=== PATIENT | male | born 1945 | race Caucasian/White ===

== ENCOUNTER 2017-10-15 06:57 | Day surgery (SDC) | payer MEDICARE ==
[~2017-10-15] VITALS: Ht 172.7 cm; Wt 122.0 kg
[2017-10-15] VITALS (9 sets, daily range): BP systolic 110–137; BP diastolic 50–74
[2017-10-15] MEDS ORDERED: acetaminophen 325mg tablet PO ONE (07:20)
[2017-10-15] MEDS ORDERED: cetirizine 10mg tablet PO ONE (07:20)
[2017-10-15] MEDS ORDERED: PER10325T PO (08:26)
[2017-10-15] MEDS ORDERED: METO25TA6 PO (08:26)
[2017-10-15] MEDS ORDERED: BICA50TA2 PO (08:26)
[2017-10-15] MEDS ORDERED: FLUO20CA39 PO (08:26)
[2017-10-15] MEDS ORDERED: OXYC10TA57 PO (09:52)
[2017-10-15] MEDS ORDERED: ROSU40TA PO (09:52)
[2017-10-15] MEDS ORDERED: ONDA8TAB13 PO (09:52)
[2017-10-15] MEDS ORDERED: DOCU250C86 PO (09:55)
[2017-10-15] MEDS ORDERED: FLO0.4C PO (09:55)
[2017-10-15] MEDS ORDERED: SENN1TAB5 PO (09:55)
[2017-10-15] MEDS ORDERED: MAGN400O6 PO (09:56)
== END 2017-10-15 13:00 ==
LOC: SSTAY O 06:57
PROVIDERS: ATTEND Family Medicine
DX: D64.9 Anemia, unspecified (principal); Z85.46 Personal history of malignant neoplasm of prostate; Z95.5 Presence of coronary angioplasty implant and graft; Z98.890 Other specified postprocedural states
CPT/HCPCS: 36415; 36430; 86885; 86900; 86901; 86920; J7030; P9016

== ENCOUNTER 2017-11-02 20:59 | Emergency (ER) | payer MEDICARE ==
[~2017-11-02] VITALS: Ht 172.7 cm; Wt 110.9 kg
[~2017-11-02 20:59] MED LIST: BICA50TA2 PO; DOCU250C86 PO; FLO0.4C PO; FLUO20CA39 PO; MAGN400O6 PO; METO25TA6 PO; ONDA8TAB13 PO; OXYC10TA57 PO; PER10325T PO; ROSU40TA PO; SENN1TAB5 PO
[2017-11-02 21:43] LABS: BASOPHILS % (AUTO) 0.3 % (0-1); EOSINOPHILS # (AUTO) 0.1 X10'3 (0-0.9); HEMOGLOBIN 8.2 g/dl (14.0-17.9); LYMPHOCYTES # (AUTO) 1.5 X10'3 (1.1-4.8); LYMPHOCYTES % (AUTO) 23.9 % (21-51); MEAN CORPUSCULAR HEMOGLOBIN 33.1 PG (27.0-31.0); MEAN CORPUSCULAR HGB CONC 34.3 % (33.0-36.5); MEAN CORPUSCULAR VOLUME 96.6 FL (78-98); MEAN PLATELET VOLUME 7.9 FL (7.4-10.4); MONOCYTES # (AUTO) 0.5 X10'3 (0-0.9); MONOCYTES % (AUTO) 7.7 % (2-12); NEUTROPHILS # (AUTO) 4.1 X10'3 (1.8-7.7); NEUTROPHILS % (AUTO) 67.1 % (42-75); PLATELET COUNT 62 X10'3 (140-440); RED BLOOD COUNT 2.48 X10'6 (4.70-6.10); RED CELL DISTRIBUTION WIDTH 20.2 % (11.5-14.5); WHITE BLOOD COUNT 6.1 X10'3 (4.5-11.0)
[2017-11-02 21:47] LABS: CLARITY,URINE CLOUDY (Clear); COLOR,URINE YELLOW (Yellow); GLUCOSE, URINE NEGATIVE (Neg); KETONES,URINE 15 mg/dl (Neg); LEUKOCYTE ESTERASE ,URINE LARGE (Neg); NITRITES, URINE NEGATIVE (Neg); OCCULT BLOOD,URINE LARGE (Neg); PROTEIN,URINE 100 mg/dl (Neg)
[2017-11-02 21:48] LABS: UA COLLECTION TYPE CLN CATCH MIDSTREAM
[2017-11-02 21:51] LABS: PROTHROMBIN TIME 10.7 SECONDS (9.0-12.0)
[2017-11-02 21:53] LABS: BACTERIA,URINE 4+ /HPF (Neg); MUCUS STRANDS FEW /LPF (Neg); SQUAMOUS EPITHELIAL CELL,UR MODERATE /LPF (FEW); WBC,URINE TNTC /HPF (0-4)
[2017-11-02 22:03] LABS: ALANINE AMINOTRANSFERASE 9 U/L (12-78); ALBUMIN/GLOBULIN RATIO 0.8 (1.1-1.5); ALKALINE PHOSPHATASE 442 IU/L (46-116); ANION GAP 11 (8-16); ASPARTATE AMINO TRANSFERASE 52 U/L (10-37); BILIRUBIN,TOTAL 0.7 MG/DL (0.1-1.0); BLOOD UREA NITROGEN 12 MG/DL (7-18); BUN/CREATININE RATIO 11.3 (5.4-32.0); CALCIUM 9.5 MG/DL (8.5-10.1); CHLORIDE 103 MMOL/L (99-107); CREATININE 1.06 MG/DL (0.60-1.10); GLUCOSE 114 MG/DL (70-104); POTASSIUM 3.6 MMOL/L (3.5-5.1); SODIUM 142 MMOL/L (135-145); TOTAL CARBON DIOXIDE 28.4 MMOL/L (24-32); TOTAL PROTEIN 6.7 G/DL (6.4-8.2); eGFR 68 ML/MIN
[2017-11-02 22:30] LABS: CLARITY,URINE CLOUDY (Clear); COLOR,URINE YELLOW (Yellow); GLUCOSE, URINE NEGATIVE (Neg); LEUKOCYTE ESTERASE ,URINE LARGE (Neg); OCCULT BLOOD,URINE LARGE (Neg); PROTEIN,URINE 100 mg/dl (Neg); UROBILINOGEN,URINE 0.2 E.U/dL (0.2-1.0)
[2017-11-02] MEDS ORDERED: normal saline 1000ml 1,000 ML IV ONE (22:30)
[2017-11-02 22:31] LABS: NITRITES, URINE POSITIVE (Neg); UA COLLECTION TYPE CLN CATCH MIDSTREAM
[2017-11-02 22:32] LABS: KETONES,URINE 15 mg/dl (Neg)
[2017-11-02] MEDS ORDERED: normal saline 1000ML IV soln IVB ONE (22:35)
[2017-11-02 22:39] LABS: BACTERIA,URINE 4+ /HPF (Neg); MUCUS STRANDS FEW /LPF (Neg); SQUAMOUS EPITHELIAL CELL,UR MODERATE /LPF (FEW); WBC,URINE TNTC /HPF (0-4)
[2017-11-02] MEDS ORDERED: levoFLOXACIN-Levaquin 750MG/D5 150 ML IV ONE (23:15)
[2017-11-03] MEDS ORDERED: LEVO750T21 PO (00:59)
[2017-11-03 02:08] VITALS: BP 138/61
== END 2017-11-03 02:10 | disposition home or self-care (01) ==
LOC: ER 20:59
DX: N39.0 Urinary tract infection, site not specified (principal); I25.10 Atherosclerotic heart disease of native coronary artery without angina pectoris; I10 Essential (primary) hypertension; I25.2 Old myocardial infarction; Z85.46 Personal history of malignant neoplasm of prostate; Z79.899 Other long term (current) drug therapy
CPT/HCPCS: 36415; 71045; 80053; 81001; 85025; 85610; 87077; 87088; 87186; 96365; 99285; J1956; J7030

== ENCOUNTER 2017-11-17 12:21 | Inpatient (IN) | payer MEDICARE ==
[2017-11-17] VITALS (10 sets, daily range): BP systolic 133–163; BP diastolic 51–72
[~2017-11-17] VITALS: Ht 604 cm; Wt 110.0 kg
[2017-11-17] MEDS ORDERED: normal saline 1000ML IV soln IVB ONE (12:55)
[2017-11-17 13:15] LABS: BASOPHILS % (AUTO) 0.5 % (0-1); EOSINOPHILS # (AUTO) 0.1 X10'3 (0-0.9); HEMATOCRIT 23.8 % (42.0-52.0); HEMOGLOBIN 8.1 g/dl (14.0-17.9); LYMPHOCYTES % (AUTO) 32.4 % (21-51); MEAN CORPUSCULAR HGB CONC 34.3 % (33.0-36.5); MEAN CORPUSCULAR VOLUME 96.2 FL (78-98); MEAN PLATELET VOLUME 7.6 FL (7.4-10.4); MONOCYTES # (AUTO) 0.5 X10'3 (0-0.9); MONOCYTES % (AUTO) 7.3 % (2-12); NEUTROPHILS # (AUTO) 3.7 X10'3 (1.8-7.7); NEUTROPHILS % (AUTO) 58.8 % (42-75); PLATELET COUNT 66 X10'3 (140-440); RED BLOOD COUNT 2.47 X10'6 (4.70-6.10); RED CELL DISTRIBUTION WIDTH 20.4 % (11.5-14.5); WHITE BLOOD COUNT 6.3 X10'3 (4.5-11.0)
[2017-11-17 13:29] LABS: ALANINE AMINOTRANSFERASE 11 U/L (12-78); ALBUMIN 2.8 G/DL (3.4-5.0); ALBUMIN/GLOBULIN RATIO 0.7 (1.1-1.5); ALKALINE PHOSPHATASE 456 IU/L (46-116); ANION GAP 10 (8-16); ASPARTATE AMINO TRANSFERASE 55 U/L (10-37); BILIRUBIN,TOTAL 0.7 MG/DL (0.1-1.0); BLOOD UREA NITROGEN 10 MG/DL (7-18); BUN/CREATININE RATIO 9.8 (5.4-32.0); CHLORIDE 101 MMOL/L (99-107); CREATININE 1.02 MG/DL (0.60-1.10); GLUCOSE 86 MG/DL (70-104); POTASSIUM 3.2 MMOL/L (3.5-5.1); SODIUM 139 MMOL/L (135-145); TOTAL CARBON DIOXIDE 28.1 MMOL/L (24-32); TOTAL PROTEIN 6.7 G/DL (6.4-8.2); eGFR 72 ML/MIN
[2017-11-17 13:34] LABS: CLARITY,URINE SLIGHTLY CLOUDY (Clear); COLOR,URINE YELLOW (Yellow); GLUCOSE, URINE NEGATIVE (Neg); KETONES,URINE 15 mg/dl (Neg); LEUKOCYTE ESTERASE ,URINE NEGATIVE (Neg); NITRITES, URINE NEGATIVE (Neg); OCCULT BLOOD,URINE MODERATE (Neg); PROTEIN,URINE 100 mg/dl (Neg); UROBILINOGEN,URINE 0.2 E.U/dL (0.2-1.0)
[2017-11-17] MEDS ORDERED: potassium Cl 20 mEq SR tablet PO STA (13:37)
[2017-11-17 13:40] LABS: UA COLLECTION TYPE URINAL
[2017-11-17 13:43] LABS: RBC,URINE 20-50 /HPF (0-2); WBC,URINE 30-50 /HPF (0-4)
[2017-11-17 13:44] LABS: BACTERIA,URINE 1+ /HPF (Neg); SQUAMOUS EPITHELIAL CELL,UR FEW /LPF (FEW)
[2017-11-17 13:45] LABS: COARSE GRANULAR CAST 0-3 /LPF (NEGATIVE); HYALINE CASTS 0-3 /LPF (NEGATIVE); MUCUS STRANDS FEW /LPF (Neg)
[2017-11-17] MEDS ORDERED: CefTRIAXone 2gm/D5W 50ml 50 ML IV ONE (14:00)
[2017-11-17] MEDS ORDERED: ondansetron/PF 4mg/2ml inj IV PRN (14:45)
[2017-11-17] MEDS ORDERED: mag hydrox/Alum hydrox/simeth 30ml oral suspension PO PRN (14:45)
[2017-11-17] MEDS ORDERED: acetaminophen 325mg tablet PO PRN (14:45)
[2017-11-17] MEDS ORDERED: magnesium hydroxide 30ml (MOM) UD suspension PO PRN (14:45)
[2017-11-17] MEDS ORDERED: ROSU40TA PO (14:50)
[2017-11-17] MEDS ORDERED: PSYL283P18 PO (14:50)
[2017-11-17] MEDS ORDERED: VENL-191 PO (14:50)
[2017-11-17] MEDS ORDERED: OXYC10TA57 PO (14:50)
[2017-11-17] MEDS: normal saline 1000ml 1,000 ML IV SCH (15:16)
[2017-11-17] MEDS: HYDROcodone/acetaminophen 5mg/325mg tablet PO PRN (18:54)
[2017-11-18] MEDS: normal saline 1000ml 1,000 ML IV SCH ×4 (00:15→21:03)
[2017-11-18] MEDS: HYDROcodone/acetaminophen 5mg/325mg tablet PO PRN ×3 (00:21→23:59)
[2017-11-18 05:38] LABS: BASOPHILS % (AUTO) 0.3 % (0-1); EOSINOPHILS % (AUTO) 0.3 % (0-6); HEMATOCRIT 27.9 % (42.0-52.0); HEMOGLOBIN 9.6 g/dl (14.0-17.9); LYMPHOCYTES # (AUTO) 2.1 X10'3 (1.1-4.8); LYMPHOCYTES % (AUTO) 35.1 % (21-51); MEAN CORPUSCULAR HEMOGLOBIN 32.6 PG (27.0-31.0); MEAN CORPUSCULAR HGB CONC 34.4 % (33.0-36.5); MEAN CORPUSCULAR VOLUME 94.9 FL (78-98); MEAN PLATELET VOLUME 7.9 FL (7.4-10.4); MONOCYTES # (AUTO) 0.5 X10'3 (0-0.9); MONOCYTES % (AUTO) 8.5 % (2-12); NEUTROPHILS # (AUTO) 3.3 X10'3 (1.8-7.7); NEUTROPHILS % (AUTO) 55.8 % (42-75); PLATELET COUNT 51 X10'3 (140-440); RED BLOOD COUNT 2.94 X10'6 (4.70-6.10); RED CELL DISTRIBUTION WIDTH 20.6 % (11.5-14.5); WHITE BLOOD COUNT 5.9 X10'3 (4.5-11.0)
[2017-11-18 06:06] LABS: ALBUMIN 2.5 G/DL (3.4-5.0); ANION GAP 10 (8-16); BLOOD UREA NITROGEN 11 MG/DL (7-18); BUN/CREATININE RATIO 13.1 (5.4-32.0); CALCIUM 9.4 MG/DL (8.5-10.1); CHLORIDE 105 MMOL/L (99-107); CREATININE 0.84 MG/DL (0.60-1.10); GLUCOSE 79 MG/DL (70-104); POTASSIUM 3.3 MMOL/L (3.5-5.1); SODIUM 141 MMOL/L (135-145); TOTAL CARBON DIOXIDE 25.8 MMOL/L (24-32); eGFR 90 ML/MIN
[2017-11-18 07:00] VITALS: BP 145/60
[2017-11-18] MEDS: NYSTATIN CREAM - 30GM TUBE TP SCH ×2 (15:35→16:00)
[2017-11-18 19:00] VITALS: BP 149/65
[2017-11-19] VITALS: BP 147/60
[2017-11-19 05:07] LABS: ALBUMIN 2.4 G/DL (3.4-5.0); ANION GAP 10 (8-16); BLOOD UREA NITROGEN 9 MG/DL (7-18); BUN/CREATININE RATIO 9.1 (5.4-32.0); CALCIUM 9.4 MG/DL (8.5-10.1); CHLORIDE 106 MMOL/L (99-107); CREATININE 0.99 MG/DL (0.60-1.10); GLUCOSE 86 MG/DL (70-104); POTASSIUM 3.1 MMOL/L (3.5-5.1); SODIUM 141 MMOL/L (135-145); TOTAL CARBON DIOXIDE 25.5 MMOL/L (24-32); eGFR 74 ML/MIN
[2017-11-19 05:09] LABS: BASOPHILS % (AUTO) 0.3 % (0-1); EOSINOPHILS % (AUTO) 0 % (0-6); HEMOGLOBIN 10.8 g/dl (14.0-17.9); LYMPHOCYTES # (AUTO) 2.1 X10'3 (1.1-4.8); LYMPHOCYTES % (AUTO) 37.3 % (21-51); MEAN CORPUSCULAR HGB CONC 33.9 % (33.0-36.5); MEAN CORPUSCULAR VOLUME 91.4 FL (78-98); MEAN PLATELET VOLUME 8.1 FL (7.4-10.4); MONOCYTES # (AUTO) 0.5 X10'3 (0-0.9); MONOCYTES % (AUTO) 8.1 % (2-12); NEUTROPHILS # (AUTO) 3.1 X10'3 (1.8-7.7); NEUTROPHILS % (AUTO) 54.3 % (42-75); PLATELET COUNT 51 X10'3 (140-440); RED CELL DISTRIBUTION WIDTH 20.8 % (11.5-14.5); WHITE BLOOD COUNT 5.7 X10'3 (4.5-11.0)
[2017-11-19 07:41] VITALS: BP 141/60
[2017-11-19] MEDS: NYSTATIN CREAM - 30GM TUBE TP SCH (07:48)
[2017-11-19] MEDS: normal saline 1000ml 1,000 ML IV SCH (10:52)
[2017-11-19 11:24] VITALS: BP 132/61
[2017-11-19] MEDS ORDERED: potassium Cl 20 mEq SR tablet PO STA (14:24)
== END 2017-11-19 16:50 | disposition home health service (06) | DRG 723 ==
LOC: ER 12:22 → ED HOLD 14:43 → OBSVTOIN 14:43 → SUR 3N 17:56
PROVIDERS: ADMIT Internal Medicine; ATTEND Internal Medicine
PROC: 30233N1 Transfusion of Nonautologous Red Blood Cells into Peripheral Vein, Percutaneous Approach (ICD-10-PCS; principal; 2017-11-17)
DX: C61 Malignant neoplasm of prostate (principal); N39.0 Urinary tract infection, site not specified; D63.0 Anemia in neoplastic disease; E78.00 Pure hypercholesterolemia, unspecified; E78.5 Hyperlipidemia, unspecified; F32.9 Major depressive disorder, single episode, unspecified; G89.29 Other chronic pain; Z66 Do not resuscitate; E87.6 Hypokalemia; I10 Essential (primary) hypertension; I25.10 Atherosclerotic heart disease of native coronary artery without angina pectoris; Z95.5 Presence of coronary angioplasty implant and graft; I25.2 Old myocardial infarction; Z79.899 Other long term (current) drug therapy
CPT/HCPCS: 36415; 80048; 80053; 81001; 83735; 85025; 86644; 86885; 86900; 86901; 86920; 86945; 87070; 87088; 96360; 97110; 97116; 97161; 99285; A6212; A6213; J0696; J7030; P9016

== ENCOUNTER 2018-02-24 13:11 | Inpatient (IN) | payer MEDICARE ==
[~2018-02-24] VITALS: Ht 175.3 cm; Wt 105.0 kg
[~2018-02-24 13:11] MED LIST changes: -BICA50TA2 PO; +BICA50TA7 PO; -FLUO20CA39 PO; -MAGN400O6 PO; +MEGE400O2 PO; -ONDA8TAB13 PO; -PER10325T PO; +PSYL283P10 PO; -SENN1TAB5 PO; +VENL-191 PO
[2018-02-24 15:23] LABS: BASOPHILS % (AUTO) 0.3 % (0-1); EOSINOPHILS % (AUTO) 0 % (0-6); LYMPHOCYTES # (AUTO) 3.1 X10'3 (1.1-4.8); LYMPHOCYTES % (AUTO) 61.2 % (21-51); MEAN CORPUSCULAR HEMOGLOBIN 33.5 PG (27.0-31.0); MEAN CORPUSCULAR HGB CONC 35.5 % (33.0-36.5); MEAN CORPUSCULAR VOLUME 94.3 FL (78-98); MEAN PLATELET VOLUME 8.4 FL (7.4-10.4); MONOCYTES # (AUTO) 0.4 X10'3 (0-0.9); MONOCYTES % (AUTO) 8.9 % (2-12); NEUTROPHILS # (AUTO) 1.4 X10'3 (1.8-7.7); NEUTROPHILS % (AUTO) 29.6 % (42-75); RED BLOOD COUNT 1.67 X10'6 (4.70-6.10); RED CELL DISTRIBUTION WIDTH 16.5 % (11.5-14.5); WHITE BLOOD COUNT 4.9 X10'3 (4.5-11.0)
[2018-02-24 15:33] LABS: INR 1.1 INR; PARTIAL THROMBOPLASTIN TIME 25 SECONDS (22-32)
[2018-02-24 15:36] LABS: ALANINE AMINOTRANSFERASE 16 U/L (12-78); ALBUMIN 2.5 G/DL (3.4-5.0); ALBUMIN/GLOBULIN RATIO 0.6 (1.1-1.5); ALKALINE PHOSPHATASE 445 IU/L (46-116); ANION GAP 10 (8-16); ASPARTATE AMINO TRANSFERASE 92 U/L (10-37); BILIRUBIN,TOTAL 0.5 MG/DL (0.1-1.0); BLOOD UREA NITROGEN 25 MG/DL (7-18); BUN/CREATININE RATIO 25.8 (5.4-32.0); CALCIUM 10.1 MG/DL (8.5-10.1); CHLORIDE 106 MMOL/L (99-107); CREATININE 0.97 MG/DL (0.60-1.10); GLUCOSE 104 MG/DL (70-104); SODIUM 141 MMOL/L (135-145); TOTAL CARBON DIOXIDE 24.7 MMOL/L (24-32); TOTAL PROTEIN 6.4 G/DL (6.4-8.2); eGFR 76 ML/MIN
[2018-02-24 15:40] LABS: HEMATOCRIT 15.8 % (42.0-52.0); HEMOGLOBIN 5.6 g/dl (14.0-17.9)
[2018-02-24 15:41] LABS: PLATELET COUNT 23 X10'3 (140-440)
[2018-02-24 15:53] LABS: ANISOCYTOSIS 1+; NUCLEATED RED BLOOD CELLS 1 /100WBC (0-0); PLATELET ESTIMATE DECREASED; SMUDGE CELLS 1+; TOTAL CELLS COUNTED 100
[2018-02-24 16:59] VITALS: BP 118/50
[2018-02-24 17:14] VITALS: BP 120/52
[2018-02-24] MEDS ORDERED: magnesium Cl slow-release 64mg tablet PO PRN (17:25)
[2018-02-24] MEDS ORDERED: ondansetron/PF 4mg/2ml inj IV PRN (17:25)
[2018-02-24] MEDS ORDERED: potassium Cl 40MEQ/NS 500ml 500 ML IV PRN ×2 (17:25)
[2018-02-24] MEDS ORDERED: magnesium hydroxide 30ml (MOM) UD suspension PO PRN (17:25)
[2018-02-24] MEDS ORDERED: mag hydrox/Alum hydrox/simeth 30ml oral suspension PO PRN (17:25)
[2018-02-24] MEDS ORDERED: magnesium 1gm/100ml D5W IVPB 100 ML IV PRN (17:25)
[2018-02-24] MEDS ORDERED: acetaminophen 325mg tablet PO PRN (17:25)
[2018-02-24] MEDS ORDERED: magnesium 4gm in 100ml NS 100 ML IV PRN (17:25)
[2018-02-24] MEDS ORDERED: potassium Cl 20 mEq SR tablet PO PRN ×2 (17:25)
[2018-02-24] MEDS ORDERED: bisacodyl 10mg suppository rectal RC PRN (17:25)
[2018-02-24 18:16] LABS: % IRON SATURATION 90 % (11-46); IRON 235 UG/DL (53-167); TOTAL IRON BINDING CAPACITY 260 UG/DL (259-388)
[2018-02-24] MEDS: ferrous gluconate 324mg tablet PO SCH (18:33)
[2018-02-24 18:41] VITALS: BP 121/54
[2018-02-24 19:30] VITALS: BP 128/57
[2018-02-24] MEDS: docusate sod 100mg capsule PO SCH (21:02)
[2018-02-24 22:11] LABS: BASOPHILS % (AUTO) 0.3 % (0-1); EOSINOPHILS % (AUTO) 0.1 % (0-6); LYMPHOCYTES % (AUTO) 63.4 % (21-51); MEAN CORPUSCULAR HEMOGLOBIN 32.2 PG (27.0-31.0); MEAN CORPUSCULAR HGB CONC 35.2 % (33.0-36.5); MEAN CORPUSCULAR VOLUME 91.5 FL (78-98); MEAN PLATELET VOLUME 8.2 FL (7.4-10.4); MONOCYTES # (AUTO) 0.4 X10'3 (0-0.9); MONOCYTES % (AUTO) 9.1 % (2-12); NEUTROPHILS # (AUTO) 1.3 X10'3 (1.8-7.7); NEUTROPHILS % (AUTO) 27.1 % (42-75); RED BLOOD COUNT 1.92 X10'6 (4.70-6.10); RED CELL DISTRIBUTION WIDTH 15.4 % (11.5-14.5); WHITE BLOOD COUNT 4.7 X10'3 (4.5-11.0)
[2018-02-24 22:29] LABS: HEMATOCRIT 17.5 % (42.0-52.0); HEMOGLOBIN 6.2 g/dl (14.0-17.9); PLATELET COUNT 21 X10'3 (140-440)
[2018-02-25] VITALS (8 sets, daily range): BP systolic 103–130; BP diastolic 47–56
[2018-02-25 05:40] LABS: BASOPHILS % (AUTO) 0.4 % (0-1); EOSINOPHILS % (AUTO) 0.1 % (0-6); HEMOGLOBIN 7.4 g/dl (14.0-17.9); LYMPHOCYTES % (AUTO) 63.6 % (21-51); MEAN CORPUSCULAR HEMOGLOBIN 32.3 PG (27.0-31.0); MEAN CORPUSCULAR HGB CONC 34.8 % (33.0-36.5); MEAN CORPUSCULAR VOLUME 92.6 FL (78-98); MEAN PLATELET VOLUME 8.3 FL (7.4-10.4); MONOCYTES # (AUTO) 0.4 X10'3 (0-0.9); MONOCYTES % (AUTO) 9.1 % (2-12); NEUTROPHILS # (AUTO) 1.2 X10'3 (1.8-7.7); NEUTROPHILS % (AUTO) 26.8 % (42-75); RED BLOOD COUNT 2.28 X10'6 (4.70-6.10); RED CELL DISTRIBUTION WIDTH 15.1 % (11.5-14.5); WHITE BLOOD COUNT 4.6 X10'3 (4.5-11.0)
[2018-02-25 05:58] LABS: HEMATOCRIT 21.1 % (42.0-52.0); PLATELET COUNT 21 X10'3 (140-440)
[2018-02-25 06:05] LABS: ALANINE AMINOTRANSFERASE 13 U/L (12-78); ALBUMIN 2.3 G/DL (3.4-5.0); ALBUMIN/GLOBULIN RATIO 0.6 (1.1-1.5); ALKALINE PHOSPHATASE 413 IU/L (46-116); ANION GAP 12 (8-16); ASPARTATE AMINO TRANSFERASE 89 U/L (10-37); BILIRUBIN,TOTAL 0.6 MG/DL (0.1-1.0); BLOOD UREA NITROGEN 22 MG/DL (7-18); BUN/CREATININE RATIO 25.6 (5.4-32.0); CALCIUM 9.9 MG/DL (8.5-10.1); CHLORIDE 106 MMOL/L (99-107); CREATININE 0.86 MG/DL (0.60-1.10); GLUCOSE 91 MG/DL (70-104); MAGNESIUM 1.9 MG/DL (1.5-2.4); POTASSIUM 3.9 MMOL/L (3.5-5.1); SODIUM 142 MMOL/L (135-145); TOTAL CARBON DIOXIDE 24.1 MMOL/L (24-32); TOTAL PROTEIN 5.9 G/DL (6.4-8.2); eGFR 87 ML/MIN
[2018-02-25] MEDS: K and/or MAG REPLACEMENT MC SCH (08:03)
[2018-02-25] MEDS: docusate sod 100mg capsule PO SCH ×2 (08:06→19:29)
[2018-02-25] MEDS: ferrous gluconate 324mg tablet PO SCH ×3 (08:41→17:57)
[2018-02-25 18:25] LABS: OCCULT BLOOD STOOL NEGATIVE (Neg)
[2018-02-26] VITALS: BP 131/52
[2018-02-26 05:14] LABS: BASOPHILS % (AUTO) 0.3 % (0-1); EOSINOPHILS % (AUTO) 0 % (0-6); HEMOGLOBIN 7.4 g/dl (14.0-17.9); LYMPHOCYTES # (AUTO) 2.9 X10'3 (1.1-4.8); LYMPHOCYTES % (AUTO) 59.2 % (21-51); MEAN CORPUSCULAR HEMOGLOBIN 32.7 PG (27.0-31.0); MEAN CORPUSCULAR HGB CONC 35.4 % (33.0-36.5); MEAN CORPUSCULAR VOLUME 92.4 FL (78-98); MEAN PLATELET VOLUME 8.8 FL (7.4-10.4); MONOCYTES # (AUTO) 0.5 X10'3 (0-0.9); MONOCYTES % (AUTO) 10.3 % (2-12); NEUTROPHILS # (AUTO) 1.5 X10'3 (1.8-7.7); NEUTROPHILS % (AUTO) 30.2 % (42-75); RED BLOOD COUNT 2.28 X10'6 (4.70-6.10); WHITE BLOOD COUNT 4.9 X10'3 (4.5-11.0)
[2018-02-26 05:19] LABS: PLATELET COUNT 21 X10'3 (140-440)
[2018-02-26 05:39] LABS: ALANINE AMINOTRANSFERASE 17 U/L (12-78); ALBUMIN 2.3 G/DL (3.4-5.0); ALBUMIN/GLOBULIN RATIO 0.6 (1.1-1.5); ALKALINE PHOSPHATASE 440 IU/L (46-116); ANION GAP 10 (8-16); ASPARTATE AMINO TRANSFERASE 90 U/L (10-37); BILIRUBIN,TOTAL 0.4 MG/DL (0.1-1.0); BLOOD UREA NITROGEN 20 MG/DL (7-18); BUN/CREATININE RATIO 24.4 (5.4-32.0); CALCIUM 9.7 MG/DL (8.5-10.1); CHLORIDE 108 MMOL/L (99-107); CREATININE 0.82 MG/DL (0.60-1.10); GLUCOSE 101 MG/DL (70-104); POTASSIUM 3.7 MMOL/L (3.5-5.1); SODIUM 144 MMOL/L (135-145); TOTAL CARBON DIOXIDE 26.1 MMOL/L (24-32); eGFR > 90 ML/MIN
[2018-02-26] MEDS: K and/or MAG REPLACEMENT MC SCH (07:32)
[2018-02-26 09:06] VITALS: BP 121/53
[2018-02-26] MEDS: ferrous gluconate 324mg tablet PO SCH ×2 (09:53→14:17)
[2018-02-26] MEDS: docusate sod 100mg capsule PO SCH (09:53)
== END 2018-02-26 15:36 | disposition home health service (06) | DRG 722 ==
LOC: ER 13:11 → ED HOLD 17:25 → EDBEDREQ 18:46 → SUR 3N 19:33
PROVIDERS: ADMIT Internal Medicine; ATTEND Family Medicine
PROC: 30233N1 Transfusion of Nonautologous Red Blood Cells into Peripheral Vein, Percutaneous Approach (ICD-10-PCS; principal; 2018-02-24)
PROC: 30233N1 Transfusion of Nonautologous Red Blood Cells into Peripheral Vein, Percutaneous Approach (ICD-10-PCS; 2018-02-25)
DX: C61 Malignant neoplasm of prostate (principal); E43 Unspecified severe protein-calorie malnutrition; C79.51 Secondary malignant neoplasm of bone; D63.0 Anemia in neoplastic disease; D69.6 Thrombocytopenia, unspecified; E78.00 Pure hypercholesterolemia, unspecified; G89.29 Other chronic pain; E78.5 Hyperlipidemia, unspecified; I10 Essential (primary) hypertension; I25.10 Atherosclerotic heart disease of native coronary artery without angina pectoris; Z51.5 Encounter for palliative care; Z66 Do not resuscitate; I25.2 Old myocardial infarction; Z85.3 Personal history of malignant neoplasm of breast; Z95.5 Presence of coronary angioplasty implant and graft; Z68.34 Body mass index [BMI] 34.0-34.9, adult; Z79.899 Other long term (current) drug therapy
CPT/HCPCS: 36415; 36430; 80053; 82272; 83540; 83550; 83735; 85025; 85610; 85730; 86644; 86885; 86900; 86901; 86920; 86945; 87070; 99285; G0378; J7030; P9016